=== PATIENT | female | born 1960 ===

== ENCOUNTER → 2021-11-08 | Outpatient (CLI) | payer OTHER ==
--- NOTE | 2021-11-08 13:54 | RAD ---
EXAM: Sonographic guided left breast biopsy; left breast biopsy clip placement; left breast postbiops y mammogram. HISTORY: 61-year-old female presents for sonographic guided biopsy of a mass within the 2:00 position of the left breast demonstrated on a sonogram performed 09/08/2021. TECHNIQUE: The risks of the procedure discussed with the patient and written and verbal consent was o btained. A timeout was performed. Sonographic imaging of the left breast was performed and the lesion of concern at the 2:00 position was applied. The skin in this location was sterilely prepped, draped and infiltrated with 1 percent lidocaine. Multiple core samples were obtained through the lesion of concern and a biopsy clip was advanced into the lesion with sonographic guidance. Manual compression was maintained until hemostasis was achieved. A sterile measures placed. A post biopsy mammogram was obtained and demonstrates the biopsy clip in expected position. The patient tolerated the procedure w ithout complication and was discharged in stable condition. IMPRESSION: Successful sonographic guided biopsy of a mass within the 2:00 position of the left breas t and biopsy clip placement. An addendum to this report will be submitted when pathology results are available. Electronically signed by: Valerie Rowan MD (11/08/2021 1:52 PM) [id number]
--- NOTE | 2021-11-09 17:07 | PATHOLOGY ---
[facility] Accession Number: [id number] . 01 Material submitted: . breast - LEFT BREAST MASS 2 O'CLOCK 3 CMFN 1.1 CM. Modifiers: left . 02 Diagnosis: Breast tissue, left breast mass 2:00 3 cm from nipple needle biopsies: - Fibroadenoma. (JPM:[facility]; 11/09/2021) QMS 11/09/2021 1132 Local . 02 Comment: There is no evidence of malignancy. (JPM:[facility]; 11/09/2021) . 02 Electronically signed: . Chad Garber MD, Pathologist NPI- [id number] . 01 Gross description: . The specimen is received in formalin, labeled "Jessica Jensen, left breast 200 3 cm FN". Received are 4 needle cores of fibrofatty tissue measuring 1.8 x 0.8 x 0.2 cm in aggregate dimensions. The specimen is submitted entirely in cassettes A1-A3. The specimen is collected at 1312 and placed into formalin at 1313 on 11/08/2021. The specimen is removed from formalin at 2240 on 11/08/2021. The total formalin fixation time is 9 hours and 27 minutes. ([facility]; 11/08/2021) NRI/NRI 11/08/2021 2105 Local . 02 Pathologist provided ICD-10: D24.2 . 02 CPT . 737920 Specimen Comment: A courtesy copy of this report has been sent to [phone], [phone] Specimen Comment: [id number] Specimen Comment: Report sent to / DR MELO Specimen Comment: A duplicate report has been generated due to demographic updates. Performed at: 01 [facility] [address], [place], [place] [id number] MD Lyndon Abbott MD Phone: [phone] Performed at: 02 [facility] [address] [place], [place] [id number] MD Chad Garber MD Phone: [phone]
== END | disposition home or self-care (01) ==
LOC: US 12:16
PROVIDERS: ATTEND Family Medicine
DX: N63.23 Unspecified lump in the left breast, lower outer quadrant (principal); R92.8 Other abnormal and inconclusive findings on diagnostic imaging of breast; D24.2 Benign neoplasm of left breast
CPT/HCPCS: 19083; 77065; A4648; C1819; 88305